=== PATIENT | female | born 1935 | race Caucasian/White ===

== ENCOUNTER 2018-04-07 09:39 | Emergency (ER) | payer MEDICARE, BC ==
[2018-04-07] MEDS ORDERED: Lidocaine 1% w/Epinephrine 1:100K 20 ML VIAL ONE (10:20)
== END 2018-04-07 10:45 | disposition home or self-care (01) ==
LOC: ERS 09:39
DX: L02.212 Cutaneous abscess of back [any part, except buttock and flank] (principal); Z79.899 Other long term (current) drug therapy
CPT/HCPCS: 10061; J2001

== ENCOUNTER 2018-12-24 13:01 | Outpatient (CLI) | payer MEDICARE, BC ==
--- NOTE | 2018-12-24 15:19 | RAD ---
AP VIEW OF THE PELVIS WITH AP AND FROGLEG PROJECTIONS OF THE LEFT AND RIGHT HIP: (six images total) INDICATION: Bilateral primary osteoarthrosis of the hips. FINDINGS: There is moderate degenerative change of both hips as well as the symphysis pubis and SI joints. The re is no acute fracture or subluxation. There is diffuse osteopenia. The bowel gas pattern is uncon structive. IMPRESSION: 1. No acute osseous abnormality. 2. Moderate bilateral hip osteoarthrosis. POS: [facility]
== END 2018-12-24 13:02 | disposition home or self-care (01) ==
LOC: BICRAD 13:01
PROVIDERS: ATTEND Internal Medicine Rheumatology
DX: M16.0 Bilateral primary osteoarthritis of hip (principal)
CPT/HCPCS: 73523

== ENCOUNTER 2020-07-06 08:42 | Outpatient (CLI) | payer MEDICARE, BC | END 2020-07-06 08:43 | disposition home or self-care (01) | LOC: BICMAMMO 08:42 | PROVIDERS: ATTEND Internal Medicine | DX: Z13.820 Encounter for screening for osteoporosis (principal); M85.89 Other specified disorders of bone density and structure, multiple sites; Z78.0 Asymptomatic menopausal state | CPT/HCPCS: 77080 ==

== ENCOUNTER 2021-03-14 08:40 | Emergency (ER) | payer MEDICARE, BC | END 2021-03-14 09:10 | disposition home or self-care (01) | LOC: ERS 08:40 | DX: L82.1 Other seborrheic keratosis (principal) | CPT/HCPCS: 99281 ==

== ENCOUNTER 2021-10-02 09:21 | Emergency (ER) | payer BC, MEDICARE | END 2021-10-02 12:18 | disposition home or self-care (01) | LOC: ERS 09:21 | DX: L72.9 Follicular cyst of the skin and subcutaneous tissue, unspecified (principal) | CPT/HCPCS: 99282 ==